=== PATIENT | male | born 1990 | race Caucasian/White ===

== ENCOUNTER 2024-11-13 09:53 | Emergency (ER) | payer SELFPAY ==
[2024-11-13 09:59] VITALS: BP 148/65; PULSE 108; RESP 20; TEMP 37.7; O2SAT 97
--- OUTSIDE RECORDS SUMMARY | 2024-11-13 10:02 | XMS_ITS | Continuity of Care Document ---
Author Organization [employer] Address [address] [address] [place] [address] Phone Care Team Providers Care Ink Maker Name Role Phone Shauna ANDERSON, Cody Unavailable Unavailable Procedures Procedure Date OFFICE/OUTPATIENT VISIT [facility] Advance Directives Directive Yes / No Effective Date File Name No Information Encounters Encounter Description Practice Location Reason(s) For Visit Diagnoses Date Provider Providers Copied on Encounter OFFICE/OUTPAT IENT VISIT [facility], [address] [address], [place], [place], [id number], [place] tel:[phone] [facility] No Information 3 Shauna Ross. [address], [address], [place], [id number] , [place]. tel:[phone] Referring Provider: Arron Bentley, [address] [place] [address] Rd [address], [place], [address]. tel:[phone] Family History Family Member Type Diagnosis Age At Onset No Information Payers Payer name Insurance type Covered alliance party ID Authoriza timarcy(s) Gian[facility]anco [facility] CI [id number] Social History Type Description Quantity Date Captured Comments Sex Male Smoking Status No Information Chief Complaint And Reason For Visit No Information Reason For Referral Reason For Referral No Information History Of Present Illness Encounter Date Complaint History Of Prese nt Illness No Information Functional Status Date Functional Assessmen t No Information Instructions Date Instruction Additional Infor mation No Information Assessments Type Assessment Date No Information Patient Care Teams Name Effective Dates (start - stop) Status Members No Information
--- NOTE | 2024-11-13 10:04 | ED_ITS ---
HPI - URI/Sore Throat General Chief Complaint: Upper Respiratory Infection Stated Complaint: cold / fever Time Seen by Provider: 11/13/24 10:21 Source: patient and RN notes reviewed Mode of arrival: ambulatory Limitations: no limitations History of Present Illness HPI Narrative: 33-year-old male presents with concern for 5 day history of fever, headache, chills, body aches, cough. Hurts he has been taking Tylenol cold and flu and ibuprofen. MD elicited complaint: cough and sore throat Related Data Home Medications ?Medication ?Instructions ?Recorded ?Confirmed ?Last Taken ?Type No Home Medications 11/13/24 11/13/24 Unknown History Allergies Allergy/AdvReac Type Severity Reaction Status Date / Time No Known Allergies Allergy Verified 11/13/24 10:13 Review of Systems Review of Systems: CONSTITUTIONAL: Reports malaise, chills, sweats, fever. EYES: Denies visual changes, redness, or discharge. ENT: Reports rhinorrhea, congestion CARDIOVASCULAR: Denies chest pain, palpitations, or edema. RESPIRATORY: Reports cough. Denies dyspnea. GASTROINTESTINAL: Denies abdominal pain, nausea, vomiting, diarrhea SKIN: Denies rash or itching. MUSCULOSKELETAL: Reports myalgia. NEUROLOGIC: Reports headache. All systems reviewed & are unremarkable except as noted in HPI and below PMFSH Comments At time of signature, agree with nursing past medical, surgical, social and family history. There is no relevant family history pertinent to the presenting complaint Exam 2 Narrative: GENERAL: Nontoxic-appearing, well-nourished, and in no acute distress. HEAD: Normocephalic EYES: PERRLA, conjunctivae clear ENT: Nares clear. Mucous membranes moist. TM pearly vásquez with sharp light reflex bilaterally; no tragal tenderness. Oropharynx not erythematous without lesions. Tonsils not enlarged and without exudate, no drooling, no hoarseness, no trismus, uvula midline. NECK: Supple. No lymphadenopathy CHEST: Clear to auscultation, breath sounds equal. No wheezing, rhonchi, rales, or stridor. No respiratory distress, speaks in full sentences. HEART: Regular rate and rhythm. No murmur heard. SKIN: Warm, dry, no rash. NEURO: Alert and oriented x3. PSYCH: Normal mood and affect Course Course Emergency Course: Patient is aware of diagnosis, understands and agrees to treatment plan. Anticipatory guidance given. Patient agrees to follow-up as directed and is aware of reasons to seek care at the emergency department. Portions of this record may have been created with voice recognition software Level of Care: Express Care Visit Vital Signs Vital signs: Reviewed. MDM - URI/Sore Throat MDM Narrative Medical decision making narrative: Differential diagnosis considered: Pacheco virus, strep pharyngitis, allergic rhinitis, upper respiratory tract infection, sinusitis, rhinosinusitis, nasopharyngitis. viral pharyngitis, otitis media, otitis externa, pneumonia, bronchitis, viral cough syndrome, viral syndrome, and influenza. Exam findings show no acute concerns or changes; patient is non-toxic appearing and is in no distress. Patient is appropriate for outpatient treatment and follow-up. Lab Data Attestation: I reviewed the patient's lab results. Critical Care Time Critical Care Time Critical Care Time: No Discharge Plan Discharge Clinical Impression: COVID Patient Disposition: Home, Self-Care Condition: Stable Instructions: How to Recover from COVID-19 at Home (ED) Additional Instructions: Your rapid COVID test is positive. COVID is a virus, antibiotics are not effective against viruses. Your body has to kill viruses. ? Stay home when you are sick, except to get medical care. ? Stay home until your symptoms are resolving and you haven't had a fever for 24 hours. ? If you are self isolating at home where others live, use a separate room and bathroom for sick household members (if possible). Clean any shared rooms as needed, to avoid transmitting the virus. ? Wash your hands often with soap and water for at least 20 seconds, especially after blowing your nose, coughing, or sneezing; going to the bathroom; and before eating or preparing food. ? If soap and water are not available, use an alcohol-based hand channel account manager with at least 60% alcohol. ? Have a supply of clean, disposable face masks. Everyone, no matter their COVID diagnosis, should wear face masks while in the home. - Over the counter medications such as Tylenol every 4 hours, ibuprofen every 6 hours (you can alternate these for maximum effect), Mucinex DM for cough, and psuedoephedrine (you must ask the pharmacist for this) can help relieve symptoms while your body fights off the virus. Watch for symptoms and learn when to seek emergency medical attention. If someone is showing any of these signs, seek emergency medical care immediately: ? Trouble breathing ? Persistent chest pain/pressure ? Confusion ? Inability to wake or stay awake ? Bluish lips or face Call 911 or call ahead to your local emergency room: Notify the hemstitching machine operator that you are seeking care for someone who has or may have COVID Patient Language: Lao Prescriptions: No Action No Home Medications Follow-up/Referrals: PHYSICIAN,VOCATIONAL TECHNICAL EDUCATION TEACHER [Primary Care Provider] - Stand Alone Forms: Work/School Release IP Time of Disposition: 10:27
--- OUTSIDE RECORDS SUMMARY | 2024-11-13 10:09 | XMS_ITS | Continuity of Care Document ---
Author Organization [employer] Address [address] [address] [place] [address] Phone Care Team Providers Care Director Of Individual Giving Name Role Phone Shauna ANDERSON, Cody Unavailable Unavailable Procedures Procedure Date OFFICE/OUTPATIENT VISIT [facility] Advance Directives Directive Yes / No Effective Date File Name No Information Encounters Encounter Description Practice Location Reason(s) For Visit Diagnoses Date Provider Providers Copied on Encounter OFFICE/OUTPAT IENT VISIT [facility] [employer], [address] [address], [place], [place], [id number], [place] tel:[phone] [facility] No Information 3 Shauna Ross. [address], [address], [place], [id number] , [place]. tel:[phone] Referring Provider: Arron Bentley, [address] [place] [address] Rd [address], [place], [address]. tel:[phone] Family History Family Member Type Diagnosis Age At Onset No Information Payers Payer name Insurance type Covered republican ID Authoriza timarcy(s) Gianfranco [facility] CI [id number] Social History Type Description Quantity Date Captured [...]
[2024-11-13 10:23] LABS: EDCOVIDSCREEN Positive (Negative); EDINFLUASCREEN Negative (Negative); EDINFLUBSCREEN Negative (Negative)
== END 2024-11-13 10:32 | disposition home or self-care (01) ==
PROVIDERS: Emergency Provider Nurse Practitioner
DX: U07.1 COVID-19 (principal)
CPT/HCPCS: 87426; 87804; 99202; G0463

== ENCOUNTER 2025-09-22 14:51 | Emergency (ER) | payer SELFPAY ==
[2025-09-22 14:58] VITALS: BP 149/79; PULSE 76; RESP 20; TEMP 36.7; O2SAT 99
--- NOTE | 2025-09-22 15:12 | ED.GENADULT ---
HPI - General Adult General Chief complaint: Back Pain/Injury Stated complaint: Back Pain and Urinary Problems Time Seen by Provider: 09/22/25 15:20 Source: patient, RN notes reviewed and old records reviewed Mode of arrival: ambulatory Limitations: no limitations History of Present Illness HPI narrative: 34-year-old male who presents to [facility] with complaints of right sided back pain and burning with urination and frequency for the past week to week and a half with no concern for STD's or blood noted in urine. Patient reports that he had tteeth pulled and had eusebio left over pain medication that he took for the pain which helped some. Patient denies any swelling redness or any pain in testicles denies any discharge. Patient reports that pain in his right lower back does not radiate and has no numbness or tingling in his legs. 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.Patient reports that he goes to [facility] ANDERSON complaint: right-sided back pain burning with urination Onset (ago): week(s) (-// weeks) Location: back (right back) Severity scale (1-10): 5 Quality: aching and sharp Treatments prior to arrival: other (took some left over pain pills from when had teeth pulled) Related Data Home Medications ?Medication ?Instructions ?Recorded ?Confirmed ?Last Taken ?Type methadone .ROUTE 09/22/25 Unknown History Allergies Allergy/AdvReac Type Severity Reaction Status Date / Time No Known Allergies Allergy Verified 09/22/25 15:05 Review of Systems Review of Systems: CONSTITUTIONAL: Denies fever, chills, or sweats. EYES: Denies visual changes, redness, or discharge. ENT: Denies rhinorrhea, congestion, sore throat, or otalgia. CARDIOVASCULAR: Denies chest pain, palpitations, or edema. RESPIRATORY: Denies cough or dyspnea. GASTROINTESTINAL: Denies abdominal pain, nausea, vomiting, or diarrhea. GENITOURINARY: reports dysuria and urinary frequency no hematuria denies any testicle pain swelling or redness SKIN: Denies rash or itching. MUSCULOSKELETAL: reports right sided back pain, joint pain, or myalgia. NEUROLOGIC: Denies headache, numbness, or weakness. PSYCHIATRIC: Denies anxiety or depression. All systems reviewed & are unremarkable except as noted in HPI and below PMFSH Past Medical History Medical History (Updated 12/30/25 @ 22:22 by Karen Coronado APRN) Edentulous had all teeth removed has dentures Social History Social History (Updated 09/23/25 @ 22:09 by Karen Coronado APRN) Smoking status: Never smoker Alcohol use details: no alcohol use Substance use: former Last use: on Metahadone for past heroin use clean for approximately 10 years Additional living arrangements comments: with significant other Gender identity (if verbalized by the patient): Male Comments At time of signature, agree with nursing past medical, surgical, social and family history. There is no relevant family history pertinent to the presenting complaint Exam Narrative: GENERAL: Well-appearing, well-nourished, obese and in no acute distress. HEAD: Normocephalic, atraumatic. EYES: PERRLA and EOMI. ENT: Nares clear, no rhinorrhea or epistaxis. Mucous membranes moist.TM's normal throat pink with no swelling is edentulous NECK: Supple. no lymphadenopathy CHEST: Clear to auscultation. No respiratory distress.SAO2 99% on room air HEART: Regular rate and rhythm. No murmur heard. Normal peripheral pulses. ABDOMEN: Soft, nontender, nondistended, normal active bowel sounds.reports burning with urination and irinary frequency , no redness,swelling or pain to testicles denies any concern for STD's and denies any penis discharge. Patient denies any suprapubic pressure or any rectal pressure.. EXTREMITIES: Normal range of motion. No edema. reports right sided back pain with no radiation to abdomen or to legs, denies any difficulty passing urine or passing stools denies any numbness or tingling to legs or any saddle paraesthesia. SKIN: Warm, dry, no rash. NEURO: No focal deficits. Alert and oriented x3. Course Course Level of Care: Express Care Visit Vital Signs Vital signs: Vital Signs Temperature 36.7 C 09/22/25 14:58 Pulse Rate 76 09/22/25 14:58 Respiratory Rate 20 09/22/25 14:58 Blood Pressure 149/79 H 09/22/25 14:58 Pulse Oximetry 99 09/22/25 14:58 Oxygen Delivery Room Air 09/22/25 14:58 Temperature 36.7 C 09/22/25 14:58 Pulse Rate 76 09/22/25 14:58 Respiratory Rate 20 09/22/25 14:58 Blood Pressure 149/79 H 09/22/25 14:58 Pulse Oximetry 99 09/22/25 14:58 Oxygen Delivery Room Air 09/22/25 14:58 reviewed MDM MDM Narrative Medical decision making narrative: 34 year old male accompanied by significant other with 1-11/2 week duration of right back pain which does not radiate and complaints of urinary burning and urinary frequency, no CVA tenderness noted denies any concern for STD, denies any testicle pain,redness or swelling, no penis discharge and no rectal presure. Urine dip shows no leukocytes, culture sent. Will treat patient with muscle relaxer and Ibuprofen and also Keflex for urinary symptoms. Patient instructed if pain becomes worse or concerning symptoms go to ED for further evaluation. Anticipatory care and reasons to seek care in ED reviewed with understanding voiced. Differential Diagnosis Differential Diagnosis: Differential diagnostic considerations for back pain?include?herniated disc, sciatica, abscess, strain/sprain, discitis, myelitis, fracture, hematoma, cauda equina, osteomyelitis, metastatic and/or primary malignancy, renal colic, pyelonephritis, AAA.? Differential diagnostic considerations for male genitourinary issues include urinary tract infection, priapism, epididymitis, prostatitis, acute retention of urine, inguinal hernia, STI exposure, testicular torsion, Catrina?s gangrene. Lab Data Lab results narrative: urine dip reviewed and urine culture sent Labs: Lab Results 09/22/25 Range/Units 15:33 POC Urine Color Yellow POC Urine Clarity Clear POC Urine pH 7.0 POC Ur Specif Hasty 1.025 POC Urine Protein Negative (Negative) POC Ur Glucose (UA) Negative (Negative) POC Urine Ketones Negative (Negative) POC Urine Blood Negative (Negative) POC Urine Nitrite Negative (Negative) POC Urine Bilirubin Negative (Negative) POC Urine Urobilinogen 1.0 POC U Leukocyte Esteras Negative (Negative) reviewed Critical Care Time Critical Care Time Critical Care Time: No Discharge Plan Discharge Clinical Impression: Urethritis Pain in lower back Qualifiers: Chronicity: acute Back pain laterality: right Sciatica presence: without sciatica Qualified Code(s): M54.50 - Low back pain, unspecified Patient Disposition: Home Condition: Stable Instructions: Antibiotic Form, Back Pain (ED), Urethritis (ED) Additional Instructions: Increase fluids especially cranberry juice and water Avoid caffeine and carbonated beverages Antibiotic as directed If back pain becomes more severe go directly to the emergency room Tylenol/ibuprofen for pain or fever Follow-up with her primary care provider if further problems or concerns Recheck if you have fever over 101, nausea and vomiting. If your symptoms persist, change or worsen significantly before you can contact your personal physician then please, without delay, go to the emergency department for further evaluation. Follow-up with PCP in 7-10 days or sooner if needed Follow up with PCP soon in regards to your blood pressure which is elevated above threshold for referral. Blood pressure above 120/80 may indicate pre-hypertension. 149/79 Patient Language: Occitan Prescriptions: New cephalexin 500 mg tablet 500 mg PO Q8H Qty: 30 0RF cyclobenzaprine 10 mg tablet 10 mg PO HS PRN (Reason: muscle spasm) Qty: 14 0RF Rx Instructions: can not drive or operate machinery if taking this medication take it only at bedtime if your are working. absolutely no alcohol ibuprofen 600 mg tablet 600 mg PO QID PRN (Reason: pain) Qty: 30 0RF Rx Instructions: take with food no more than 4 per day No Action methadone .ROUTE Patient Comments: pt states 130 daily Follow-up/Referrals: PHYSICIAN,DIABETES NURSE [Primary Care Provider, Internal Medicine] Time of Disposition: 15:32 Quality Ty Coma Scale Eyes: Open Verbal: Oriented and Alert Motor: Follows Commands [place] Coma Total Score: 15
[2025-09-22 15:35] LABS: EDUAAPPEAR Clear; EDUABILI Negative (Negative); EDUABLOOD Negative (Negative); EDUACOLOR1 Yellow; EDUAGLUCOSE Negative (Negative); EDUAKETONE Negative (Negative); EDUALEUKO Negative (Negative); EDUANITRATE Negative (Negative); EDUAPH 7.0; EDUAPROTEIN Negative (Negative); EDUASPGRAVITY 1.025; EDUAUROBILI 1.0
== END 2025-09-22 15:45 | disposition home or self-care (01) ==
PROVIDERS: Emergency Provider Registered Nurse
DX: M54.50 Low back pain, unspecified (principal); N34.2 Other urethritis
CPT/HCPCS: 81003; 87086; 99213; G0463